=== PATIENT | male | born 1945 | race Caucasian/White ===

== ENCOUNTER 2022-02-19 20:20 | Observation (INO) ==
[2022-02-19 21:04] LABS: Basophils # (auto) 0.04 K/uL (0-0.2); Basophils % (auto) 0.4 %; Eosinophils # (auto) 0.37 K/uL (0-0.50); Eosinophils % (auto) 3.6 %; Hemoglobin 13.6 g/dl (14.0-18.0); Immature Granulocytes # (auto) 0.06 K/uL (0.00-0.02); Immature Granulocytes % (auto) 0.6 %; Lymphocytes # (auto) 0.95 K/uL (1.2-3.4); Lymphocytes % (auto) 9.3 %; Mean Corpuscular Hemoglobin 26.5 pg (25.0-34.0); Mean Corpuscular Hgb Conc 31.6 g/dL (32.0-36.0); Mean Corpuscular Volume 83.7 fL (80.0-100.0); Mean Platelet Volume 10.2 fL (9.4-12.4); Monocytes # (auto) 0.65 K/uL (0.24-0.82); Monocytes % (auto) 6.4 %; Neutrophils # (auto) 8.11 K/uL (1.4-6.5); Neutrophils % (auto) 79.7 %; Platelet Count 313 K/uL (130-400); RDW Coefficient of Variation 19.7 % (11.5-14.5); RDW Standard Deviation 57.9 fL (36.4-46.3); Red Blood Count 5.14 M/uL (4.63-6.08); White Blood Count 10.18 K/ul (4.8-10.8)
--- NOTE | 2022-02-19 23:35 | Emergency Department Note ---
History of Present Illness General Chief complaint: Syncope (Near Syncope) Time Seen by Provider: 02/19/22 23:17 History of Present Illness 76-year-old male presents emergency department states that he was outside he bent over he was wearing oxygen at 6 L and he states that he felt like he was out of oxygen. His called EMS due to the fact that he ended up laying down and may have had a brief episode of syncope. Patient denies any chest pain denies shortness of breath currently typically states he wears 8 L of oxygen he states he feels much improved currently he states he may of ran out of oxygen. Patient denies any substernal chest pressure denies headache denies nausea vomiting diarrhea denies abdominal pain. There are no other mitigating or alleviating factors Home Medications Medication Instructions Recorded Confirmed Type ASPIRIN 325 mg PO DAILY ##0 06/14/13 History ATORVASTATIN (LIPITOR) 40 mg PO QPM #0 tabs 06/14/13 History Allopurinol 300 mg PO DAILY ##0 06/14/13 History Amlodipine (Norvasc) 10 mg PO DAILY #0 tabs 06/14/13 History FUROSEMIDE (LASIX) 20 mg PO DAILY #0 tabs 06/14/13 History Lisinopril (Zestril) 10 mg PO DAILY #0 tabs 06/14/13 History OMEPRAZOLE (PRILOSEC) 20 mg PO DAILY #0 caps 06/14/13 History Metoprolol Succ (Toprol Xl) 1 tab PO DAILY 30 days #30 tabs 02/03/16 History (Toprol-Xl) WARFARIN SODIUM (COUMADIN) 1 tab PO DAILY 90 days #90 tabs 02/03/16 History Allergies Allergy/AdvReac Type Severity Reaction Status Date / Time No Known Allergies Allergy Unverified 02/03/16 08:59 Past Med/Surg History Social History Smoking Status: Former smoker Tobacco Type: Cigarettes Feels Safe at Home: Yes Immunizations: Past medical history COPD, hypertension, high cholesterol Physical Exam Vital Signs Vital Signs - 24 hr 02/19/22 20:33 02/19/22 23:27 02/19/22 23:29 Temperature 36.7 C Temperature Source Temporal Artery Scan Pulse Rate 84 82 Pulse Rate [Finger] 82 Respiratory Rate 18 18 18 Respiratory Effort / Characteristics Non-Labored Spontaneous Non-Labored Spontaneous Respiratory Depth Normal Normal Blood Pressure 105/66 Blood Pressure [Right Arm] 143/78 H Blood Pressure Mean 79 Blood Pressure Mean [Right Arm] 99 Blood Pressure Position [Right Arm] Sitting Pulse Oximetry 91 90 90 Oxygen Delivery Method Room Air Nasal Cannula Nasal Cannula Oxygen Flow Rate 8 8 Sepsis Recent Fever Within 48 Hours No Sepsis New/Unexplained Change in Mental Status No Sepsis Action Taken by Nursing No Action Required GENERAL: Patient is awake alert in no acute distress patient is resting comfortably and showing no signs of anxiety EYES: The conjunctivae are clear. The pupils are round and reactive. EARS, NOSE, MOUTH AND THROAT: The nose is without any evidence of any deformity. Mucous membranes are moist. Tongue is midline. NECK: The neck is nontender and supple. RESPIRATORY: Normal respiratory effort is noted there is no evidence of wheezing rhonchi or rales CARDIOVASCULAR: Regular rate and rhythm noted there no murmurs rubs or gallops normal S1 normal S2. GASTROINTESTINAL: The abdomen is soft. Abdomen is nontender. PELVIS: The Pelvis is stable. No tenderness to palpation is noted. BACK: No midline tenderness or or step-off noted range of motion in flexion extension as well as rotation no signs of muscle spasm noted MUSCULOSKELETAL/EXTREMITIES: There is no evidence of gross deformity full range of motion is noted in the hips and shoulders. SKIN: There is no obvious evidence of any rash. There are no petechiae, pallor or cyanosis noted. NEUROLOGIC: Patient is awake alert and oriented x3 strength is symmetric Medical Decision Making Medical Records Attestation: I reviewed the patient's medical records. Home Medications Current Medication List: was personally reviewed by me Laboratory Data Attestation: I reviewed the patient's lab results. Result diagrams: 02/19/22 20:53 02/19/22 23:24 Lab Results 02/19/22 02/19/22 02/19/22 Range/Units 20:53 20:53 20:53 WBC 10.18 (4.8-10.8) K/ul RBC 5.14 (4.63-6.08) M/uL Hgb 13.6 L (14.0-18.0) g/dl Hct 43.0 (40.1-51.0) % MCV 83.7 (80.0-100.0) fL MCH 26.5 (25.0-34.0) pg MCHC 31.6 L (32.0-36.0) g/dL RDW Std Deviation 57.9 H (36.4-46.3) fL RDW Coeff of Mar[place]ruz 19.7 H (11.5-14.5) % Plt Count 313 (130-400) K/uL MPV 10.2 (9.4-12.4) fL Immature Gran % (Auto) 0.6 % Neut % (Auto) 79.7 % Lymph % (Auto) 9.3 % [place] % (Auto) 6.4 % Eos % (Auto) 3.6 % Baso % (Auto) 0.4 % Neut # (Auto) 8.11 H (1.4-6.5) K/uL Lymph # (Auto) 0.95 L (1.2-3.4) K/uL [place] # (Auto) 0.65 (0.24-0.82) K/uL Eos # (Auto) 0.37 (0-0.50) K/uL Baso # (Auto) 0.04 (0-0.2) K/uL Immature Gran # (Auto) 0.06 H (0.00-0.02) K/uL PT (9.0-12.0) Seconds INR (0.9-1.1) Sodium Cancelled Potassium Cancelled Chloride Cancelled Carbon Dioxide Cancelled Anion Gap Cancelled BUN Cancelled Creatinine Cancelled Est Cr Clr Drug Dosing Cancelled Est GFR ( Amer) Cancelled Est GFR (Non-Af Amer) Cancelled BUN/Creatinine Ratio Cancelled Glucose Cancelled Calcium Cancelled Magnesium Cancelled Total Bilirubin Cancelled AST Cancelled ALT Cancelled Alkaline Phosphatase Cancelled Troponin I High Sens (0-20) pg/ml Total Protein Cancelled Albumin Cancelled Globulin Cancelled Albumin/Globulin Ratio Cancelled TSH Cancelled 02/19/22 02/19/22 02/19/22 Range/Units 23:24 23:24 23:24 WBC (4.8-10.8) K/ul RBC (4.63-6.08) M/uL Hgb (14.0-18.0) g/dl Hct (40.1-51.0) % MCV (80.0-100.0) fL MCH (25.0-34.0) pg MCHC (32.0-36.0) g/dL RDW Std Deviation (36.4-46.3) fL RDW Coeff of [place] (11.5-14.5) % Plt Count (130-400) K/uL MPV (9.4-12.4) fL Immature Gran % (Auto) % Neut % (Auto) % Lymph % (Auto) % [place] % (Auto) % Eos % (Auto) % Baso % (Auto) % Neut # (Auto) (1.4-6.5) K/uL Lymph # (Auto) (1.2-3.4) K/uL [place] # (Auto) (0.24-0.82) K/uL Eos # (Auto) (0-0.50) K/uL Baso # (Auto) (0-0.2) K/uL Immature Gran # (Auto) (0.00-0.02) K/uL PT (9.0-12.0) Seconds INR (0.9-1.1) Sodium 137 Potassium 4.2 Chloride 102 Carbon Dioxide 25 Anion Gap 10 BUN 31 H Creatinine 1.56 H Est Cr Clr Drug Dosing Not Reportable Est GFR ( Amer) 49.3 Est GFR (Non-Af Amer) 42.5 BUN/Creatinine Ratio 19.9 Glucose 103 H Calcium 9.2 Magnesium 2.1 Total Bilirubin 0.7 AST 20 ALT 12 Alkaline Phosphatase 71 Troponin I High Sens 1414.5 H* (0-20) pg/ml Total Protein 8.3 Albumin 4.3 Globulin 4.0 Albumin/Globulin Ratio 1.1 TSH 2.345 02/19/22 Range/Units 23:24 WBC (4.8-10.8) K/ul RBC (4.63-6.08) M/uL Hgb (14.0-18.0) g/dl Hct (40.1-51.0) % MCV (80.0-100.0) fL MCH (25.0-34.0) pg MCHC (32.0-36.0) g/dL RDW Std Deviation (36.4-46.3) fL RDW Coeff of [place] (11.5-14.5) % Plt Count (130-400) K/uL MPV (9.4-12.4) fL Immature Gran % (Auto) % Neut % (Auto) % Lymph % (Auto) % [place] % (Auto) % Eos % (Auto) % Baso % (Auto) % Neut # (Auto) (1.4-6.5) K/uL Lymph # (Auto) (1.2-3.4) K/uL [place] # (Auto) (0.24-0.82) K/uL Eos # (Auto) (0-0.50) K/uL Baso # (Auto) (0-0.2) K/uL Immature Gran # (Auto) (0.00-0.02) K/uL PT 11.9 (9.0-12.0) Seconds INR 1.1 (0.9-1.1) Sodium Potassium Chloride Carbon Dioxide Anion Gap BUN Creatinine Est Cr Clr Drug Dosing Est GFR ( Amer) Est GFR (Non-Af Amer) BUN/Creatinine Ratio Glucose Calcium Magnesium Total Bilirubin AST ALT Alkaline Phosphatase Troponin I High Sens (0-20) pg/ml Total Protein Albumin Globulin Albumin/Globulin Ratio TSH Imaging Data Attestation: I personally reviewed and interpreted this imaging study as follows: ECG Data Attestation: I personally reviewed and interpreted this ECG as follows: Additional Comments: EKG interpreted by me sinus rhythm rate of 88 left axis deviation left ventricular hypertrophy right bundle branch block no obvious ST segment elevation or depression MDM Narrative Medical decision making differential diagnosis includes syncope near syncope vasovagal event cardiac dysrhythmia electrolyte abnormality CHF COPD exacerbation. Plan is to check labs EKG, chest x-ray, monitor Impression & Plan Syncope, Elevated troponin Discharge Plan Visit Data Chief Complaint: Syncope (Near Syncope) ED Provider: Hector Mccormick Discharge Problem: Syncope, Elevated troponin Patient Disposition: Being Evaluated by Hospitalist Forms Stand Alone Forms: [facility] Prescriptions Prescriptions: No Action ASPIRIN 325 MG tablet 325 mg PO DAILY Qty: 0 ATORVASTATIN (LIPITOR) 80 MG tablet 40 mg PO QPM Qty: 0 Allopurinol 300 MG tablet 300 mg PO DAILY Qty: 0 Amlodipine (Norvasc) 10 MG tablet 10 mg PO DAILY Qty: 0 FUROSEMIDE (LASIX) 20 MG tablet 20 mg PO DAILY Qty: 0 Lisinopril (Zestril) 10 MG tablet 10 mg PO DAILY Qty: 0 OMEPRAZOLE (PRILOSEC) 20 MG CONTR REL CAP 20 mg PO DAILY Qty: 0 Metoprolol Succ (Toprol Xl) (Toprol-Xl) 50 MG [id number] 1 tab PO DAILY 30 Days Qty: 30 WARFARIN SODIUM (COUMADIN) 5 MG tablet 1 tab PO DAILY 90 Days Qty: 90 Referrals Referrals: Ulises Martínez M.D. [Primary Care Provider] -
[2022-02-19 23:49] LABS: INR 1.1 (0.9-1.1); Prothrombin Time 11.9 Seconds (9.0-12.0)
[2022-02-19 23:57] LABS: Alanine Aminotransferase 12 U/L (7-52); Albumin Globulin Ratio 1.1 (0.9-2); Albumin Level 4.3 gm/dl (3.4-5.0); Alkaline Phosphatase 71 U/L (34-104); Anion Gap 10 (3-11); Aspartate Aminotransferase 20 U/L (13-39); BUN Creatinine Ratio 19.9 (10-20); Bilirubin,Total 0.7 mg/dl (0.2-1.0); Blood Urea Nitrogen 31 mg/dl (6-23); Calcium 9.2 mg/dl (8.5-10.1); Carbon Dioxide 25 mmol/L (21-32); Chloride 102 mmol/L (98-107); Est GFR (African American) 49.3 ml/min; Est GFR (Non-African American) 42.5 ml/min; Glucose 103 mg/dl (70-99(Fasting)); Magnesium 2.1 mg/dl (1.7-2.4); Potassium 4.2 mmol/L (3.5-5.1); Sodium 137 mmol/L (136-145); Total Protein 8.3 gm/dl (6.0-8.3)
[2022-02-20] MEDS ORDERED: ACETAMINOPHEN 325 MG TAB PO PRN (04:31)
[2022-02-20] MEDS ORDERED: NITROGLYCERIN SL 0.4 MG/TAB TAB SL PRN (04:31)
[2022-02-20] MEDS ORDERED: ALBUTEROL 0.083% NEBU SOLN 3 ML VIAL INH PRN (04:31)
[2022-02-20] MEDS ORDERED: FUROSEMIDE 20 MG TAB PO PRN (04:31)
[2022-02-20] MEDS ORDERED: DICLOFENAC SOD 1% GEL 100 GM TUBE EXT PRN (04:31)
[2022-02-20] MEDS ORDERED: ALBUTEROL HFA 8 GM INHALER INH PRN (04:31)
--- NOTE | 2022-02-20 04:55 | History and Physical Report ---
DATE OF ADMISSION: 02/20/2022. CHIEF COMPLAINT: Near syncope. HISTORY OF PRESENT ILLNESS: This is a 76-year-old male with past medical history significant for history of chronic systolic and diastolic CHF, pulmonary hypertension, COPD, chronic respiratory failure with hypoxia, on 6 liters of oxygen while at rest and 8 liters while exertion, history of hyperlipidemia, lung nodules, history of CAD, status post CABG, history of second-degree AV block, status post pacemaker, history of peripheral artery disease, hypertension, history of mediastinal adenopathy. He presents with near syncope. The patient was in the front of his house,he was decorating his [employer] tree, when he was bending down, he bent 3 times, and the last time when he bent and got up, he felt like passing out, and he had to go and sit down and the feeling of passing out lasted for 2 minutes, which prompted him to come to the ER. Denies any chest pain, no shortness of breath, no cough, no fever, no chills, no headache, no dizziness, no blurred visions, no earache, no runny nose, no sore throat, no difficulty swallowing, no nausea, no abdominal pain. Normal bowel and bladder movements. No swelling in the legs. Currently, resting comfortably and hemodynamically stable. His troponin is elevated at 1414. ALLERGIES: No known drug allergies. PAST MEDICAL HISTORY: As mentioned above. PAST SURGICAL HISTORY: CABG, left heart catheterization, pacemaker insertion, tonsillectomy, adenoidectomy, inguinal hernia repair, vasectomy. MEDICATIONS: The patient is on albuterol nebulization q. 4 hours p.r.n., albuterol inhalation q. 4 hours p.r.n., allopurinol 300 mg p.o. daily, aspirin 81 mg p.o. daily, atorvastatin 80 mg p.o. daily, vitamin D 50 mcg p.o. daily, diclofenac topical q. 4 hours p.r.n., Lasix 40 mg p.o. b.i.d. and 20 mg p.o. daily p.r.n., gabapentin 300 mg p.o. t.i.d., hydralazine 10 mg p.o. t.i.d., magnesium oxide 400 mg p.o. daily, metoprolol succinate 50 mg p.o. daily, omeprazole 20 mg p.o. daily, Anoro Ellipta one inhalation daily. FAMILY HISTORY: Significant for mother had colon cancer, brother has complication of Agent [place]. SOCIAL HISTORY: . Quit smoking in 2002, smoked 2 packs a day for 40 years. No alcohol use. No drug use. REVIEW OF SYSTEMS: As per HPI. Rest of the review of systems is negative. PHYSICAL EXAMINATION: GENERAL: The patient is of moderate build, not in acute distress. VITAL SIGNS: Temperature 36.7, pulse 82, respiratory rate 18, blood pressure 143/78, oxygen 90% on 8 liters. HEENT: No pallor, no icterus. Pupils equal, round, and reactive to light. Oral mucosa moist. NECK: No JVD or neck masses. CARDIOVASCULAR: S1 and S2 heard. Regular rate and rhythm. No murmur, no gallop. RESPIRATORY SYSTEM: Normal AP diameter. No accessory muscle use. No wheezing, no crackles. ABDOMEN: Soft, bowel sounds present, nontender, no distention. CENTRAL NERVOUS SYSTEM: Cranial nerves II-XII grossly intact, nonfocal. EXTREMITIES: No edema, no erythema. LABORATORY DATA: WBC 10.1, hemoglobin 13.6, hematocrit 43, platelets 313. PT 11.9, INR 1.1. Sodium 137, potassium 4.2, chloride 102, bicarbonate 25, BUN 31, creatinine 1.5, serum glucose 103, calcium 9.2, magnesium 2.1, total bilirubin 0.7, AST 20, ALT 12, alkaline phosphatase 71. Troponin I high sensitivity 1414. TSH is 2.3. SARS-CoV-2 rapid test negative. IMAGING DATA: Chest x-ray, no acute findings. EKG: Sinus rhythm with first-degree AV block, poor quality data, left axis deviation, right bundle-branch block. ASSESSMENT AND PLAN: This 76-year-old male presents with near syncope. 1. Near syncope: Elevated troponin of 1414. No chest pain. Currently resting comfortably and hemodynamically stable. Will follow the serial cardiac enzymes, repeat EKG, and will follow echocardiogram. Will keep him n.p.o. If troponin trends high, will start on heparin. Will consult cardiology in the a.m. for further recommendations. 2. History of chronic systolic and diastolic CHF, EF of 40% to 45%. Continue his home Lasix and metoprolol succinate. Currently seems stable. 3. History of chronic respiratory failure: On oxygen 6 liters at rest and 8 L with exertion. History of COPD. History of pulmonary hypertension. Continue his home inhalers. Currently seems stable. 4. History of second-degree AV block: Status post pacemaker. 5. History of coronary artery disease, status post coronary artery bypass grafting. Continue his home medications of aspirin, statin, and beta elmer. 6. Hypertension: On metoprolol, hydralazine, diuretics. We will monitor the blood pressure. 7. Hyperlipidemia: On statin. 8. CKD stage 3 presented with cr 1.5. Baseline cr 1.3 to 1.4. Will follow repeat labs. 9. Deep venous thrombosis prophylaxis: Sequential compression devices, heparin subcutaneously. DISPOSITION: Closely observe in the tele floor. PT/OT prior to discharge. Social service to help with discharge planning. Level 1 full code. Job ID: [id number] MTDD
[2022-02-20 08:08] LABS: Appearance Urine Clear (Clear); Bilirubin Urine Negative (Negative); Blood Urine Negative (Negative); Color Urine Yellow; Glucose Urine UA Negative (Negative); Ketones Urine Negative (Negative); Leukocyte Esterase Urine Negative (Negative); Nitrite Urine Negative (Negative); Protein Urine Negative (Negative); Specific Gravity Urine 1.018 (1.000-1.030); Urobilinogen Urine Negative (Negative)
[2022-02-20 08:32] LABS: Basophils # (auto) 0.04 K/uL (0-0.2); Basophils % (auto) 0.5 %; Eosinophils # (auto) 0.38 K/uL (0-0.50); Eosinophils % (auto) 4.5 %; Hematocrit (blood only) 40.5 % (40.1-51.0); Hemoglobin 13.2 g/dl (14.0-18.0); Immature Granulocytes # (auto) 0.02 K/uL (0.00-0.02); Immature Granulocytes % (auto) 0.2 %; Lymphocytes % (auto) 16.6 %; Mean Corpuscular Hemoglobin 26.5 pg (25.0-34.0); Mean Corpuscular Hgb Conc 32.6 g/dL (32.0-36.0); Mean Corpuscular Volume 81.3 fL (80.0-100.0); Mean Platelet Volume 10.2 fL (9.4-12.4); Monocytes # (auto) 0.71 K/uL (0.24-0.82); Monocytes % (auto) 8.4 %; Neutrophils # (auto) 5.87 K/uL (1.4-6.5); Neutrophils % (auto) 69.8 %; Platelet Count 275 K/uL (130-400); RDW Coefficient of Variation 19.4 % (11.5-14.5); RDW Standard Deviation 56.2 fL (36.4-46.3); Red Blood Count 4.98 M/uL (4.63-6.08); White Blood Count 8.42 K/ul (4.8-10.8)
--- NOTE | 2022-02-20 08:45 | XRay Report ---
XR chest 1V portable CLINICAL HISTORY: cough COMPARISON STUDY: Chest radiograph December 10, 2013. FINDINGS: Dual-lead left subclavian pacer, median sternotomy wires, mediastinal surgical clips and le ft atrial appendage occluder device are noted. There is no pneumothorax or pleural effusion. Linear l eft basilar opacity favors atelectasis or scarring. Cardiomegaly is noted. There is no evidence for o vert pulmonary edema. IMPRESSION: No acute cardiopulmonary findings. ACT 112: Negative or not required by law. Electronically signed by: Terrell Hale M.D. 02/20/2022 8:44 AM
[2022-02-20 08:56] LABS: BUN Creatinine Ratio 21.8 (10-20); Calcium 8.8 mg/dl (8.5-10.1); Creatinine Clr Calc Pharmacy 53.4 ml/min; Est GFR (African American) 59.8 ml/min; Est GFR (Non-African American) 51.6 ml/min; Magnesium 2.1 mg/dl (1.7-2.4); Potassium 3.9 mmol/L (3.5-5.1)
[2022-02-20] MEDS ORDERED: METOPROLOL SUCC 50MG EXT REL TAB PO SCH (09:00)
[2022-02-20] MEDS ORDERED: ASPIRIN 81 MG ECTAB PO SCH (09:00)
[2022-02-20] MEDS ORDERED: allopurinoL 300 MG TAB PO SCH (09:00)
[2022-02-20] MEDS ORDERED: ATORVASTATIN 40 MG TAB PO SCH (09:00)
[2022-02-20] MEDS ORDERED: HEPARIN SOD 5,000 UNIT/0.5 ML VIAL SQ SCH (09:00)
[2022-02-20] MEDS ORDERED: UMECLIDINIUM/VILANTEROL 62.5/25MCG 7 PUFFS/INHALER INH SCH (09:00)
[2022-02-20] MEDS ORDERED: MAGNESIUM OXIDE 400 MG TAB PO SCH (09:00)
[2022-02-20] MEDS ORDERED: FUROSEMIDE 40 MG TAB PO SCH (09:00)
[2022-02-20] MEDS ORDERED: PANTOprazole 40 MG TAB PO SCH (09:00)
[2022-02-20] MEDS ORDERED: CHOLECALCIFEROL 1,000 UNITS 25 MCG TAB PO SCH (09:00)
[2022-02-20 09:06] LABS: Troponin I High Sensitivity 1387.3 pg/ml (0-20)
[2022-02-20] MEDS: hydrALAZINE 10 MG TAB PO SCH ×2 (09:29→13:58)
[2022-02-20] MEDS: GABAPENTIN 300 MG CAP PO SCH ×2 (09:29→13:58)
--- NOTE | 2022-02-20 11:15 | Cardiology Consultation ---
Date of Consultation February 20, 2022 Assessment & Plan (1) Syncope: (2) Elevated troponin: (3) SSS (sick sinus syndrome): (4) CAD (coronary artery disease): (5) Chronic hypoxemic respiratory failure: (6) Ischemic cardiomyopathy: (7) Pulmonary hypertension: (8) COPD (chronic obstructive pulmonary disease): Plan We are able to review the patient's device interrogation which showed no arrhythmias at the time of his near syncopal event Given the clinical context I believe he likely hyperventilated which led to his near syncope Troponin is elevated but 2D echocardiogram does not show any new wall motion abnormalities No indication for repeat cardiac catheterization at this time Continue outpatient cardiac medical regimen Okay to discharge to home from a cardiac standpoint History of Present Illness Attending Physician: Ben Avila MD History of Present Illness Mr. Barreto is a very pleasant 76-year-old gentleman who normally follows with Dr. Montez of our cardiology practice for his history of coronary disease and mild ischemic cardiomyopathy. He presented to [facility] on 02/19/2022 with reports of a near syncopal episode. He states that he was putting up outside holiday decorations when he bent down to 3 times and upon arising the third time he became significantly lightheaded and had to sit down. Upon further questioning, he notes that he forgot to turn his oxygen up to 8 L as he is directed for activity. Upon arrival emergency department is found to have elevated troponin level. His device was interrogated that showed no arrhythmias to coincide with the event. PMHX: History includes progressive dyspnea, leading to cardiac cath revealing multivessel disease. He was transferred to [facility] and underwent CABG on 04/11/20 receiving CABG X 4 with SHERWOOD to LAD, SVG to DIAG, OM, and PDA. Post op course was complicated by persistent hypoxia, requiring high flow oxygen and BiPAP, which was slowly weaned to NC. He underwent chest CT to R/O PE which was negative and demonstrated small B/L pleural effusions. Post op echo revealed mildly reduced LVEF at 45-49%. He required supplemental O2 upon discharge and now has chronic respiratory failure with COPD/emphysema. He is following with pulm closely. Allergies Allergy/AdvReac Type Severity Reaction Status Date / Time No Known Allergies Allergy Unverified 02/20/22 01:10 Home Medications Medication Instructions Recorded Confirmed Type albuterol sulfate 2.5 mg/3 mL 2.5 mg inhalation Q4H PRN 02/20/22 02/20/22 History (0.083 %) solution for nebulization Shortness Of Breath Or Wheezing albuterol sulfate 90 mcg/actuation 2 puff inhalation Q4 PRN Shortness 02/20/22 02/20/22 History aerosol inhaler (Ventolin HFA) Of Breath allopurinol 300 mg tablet 300 mg PO DAILY 02/20/22 02/20/22 History aspirin 81 mg tablet,delayed 81 mg PO DAILY 02/20/22 02/20/22 History release atorvastatin 80 mg tablet 80 mg PO DAILY 02/20/22 02/20/22 History cholecalciferol (vitamin D3) 50 50 mcg PO DAILY 02/20/22 02/20/22 History mcg (2,000 unit) tablet (Vitamin D3) diclofenac sodium 1 % topical gel 0 g topical Q4 PRN Pain 02/20/22 02/20/22 History (Voltaren Arthritis Pain) furosemide 20 mg tablet (Lasix) 20 mg PO DAILY PRN .SOB 02/20/22 02/20/22 History furosemide 40 mg tablet (Lasix) 40 mg PO BID 02/20/22 02/20/22 History gabapentin 300 mg capsule 300 mg PO TID 02/20/22 02/20/22 History hydralazine 10 mg tablet 10 mg PO TID 02/20/22 02/20/22 History magnesium oxide 400 mg PO DAILY 02/20/22 02/20/22 History metoprolol succinate 50 mg 50 mg PO DAILY 02/20/22 02/20/22 History tablet,extended release 24 hr omeprazole 20 mg capsule,delayed 20 mg PO DAILY 02/20/22 02/20/22 History release umeclidinium 62.5 mcg-vilanterol 1 inh inhalation DAILY 02/20/22 02/20/22 History 25 mcg/actuation powdr for inhalation (Anoro Ellipta) Patient History Social History Smoking Status: Former smoker Tobacco Type: Cigarettes Second Hand Exposure: No; Do You Dip or Chew Tobacco: No; Tobacco Cessation Education Requested by Patient: No Hx Alcohol Use: Yes Alcohol type: beer Hx Substance Use: No Preferred Language: Mexican Communication Ability: Effective Grill Associate Required: No Beliefs That Will Affect Care: None Current Living Situation: Spouse Current Living Situation Comment: Home with Other Information That Helps Us Care for You: No Feels Safe at Home: Yes Safety Concerns: Feels Safe At This Time Assistive Devices: Oxygen - Continuous Assistive Devices Comment: 6-8L chronic Review of Systems Review of Systems: All systems reviewed & are unremarkable except as noted in HPI & below Physical Exam Physical Exam: General: Awake, alert and oriented x 3. No acute distress. HEENT: Normocephalic, atraumatic. Pupils equal, round and reactive to light and accommodation. Extraocular muscles are intact. Anicteric sclera. Moist mucous membranes. Neck: No JVD. No bruit. Cardiovascular: Regular. Positive S-4. Normal S-1 and S-2. No S-3. 3/6 holosystolic ejection murmur, 5th intercostal space, mid-clavicular line without radiation. No rubs. Pulmonary: Poor air movement diffusely Abdomen: Bowel sounds x 4, soft. No rebound, guarding or tenderness. No organomegaly. Extremities: No clubbing, cyanosis or edema. +2 pedal pulses bilaterally. Skin: Warm and dry. Results & Data ([facility]) Vital Signs (Past 12 Hours) Vital Signs Temp Pulse Pulse Resp BP Pulse Ox Pulse Ox 02/20/22 07:48 36.6 C 62 22 138/73 90 02/20/22 05:00 60 02/20/22 05:18 02/20/22 05:18 36.5 C 61 20 150/79 H 93 02/20/22 04:31 93 02/20/22 03:10 66 18 145/79 H 93 02/20/22 01:13 60 18 140/81 94 02/19/22 23:29 82 18 90 02/19/22 23:27 82 18 143/78 H 90 O2 Del Method O2 Del Method O2 Flow Rate O2 Flow Rate 02/20/22 07:48 Nasal Cannula 7 02/20/22 05:00 02/20/22 05:18 High Flow Nasal Cannula 8 02/20/22 05:18 High Flow Nasal Cannula 8 02/20/22 04:31 High Flow Nasal Cannula 8 02/20/22 03:10 Nasal Cannula 8 02/20/22 01:13 Nasal Cannula 8 02/19/22 23:29 Nasal Cannula 8 02/19/22 23:27 Nasal Cannula 8 Diagnostic Findings Echo report reviewed dated September 2021: Interpretation Summary The primary indication after review was deemed appropriate and the examination was performed. Compared to last available study changes are noted as follows: pulmonary pressures have increased. Normal LV chamber size with mild concentric LVH. Mildly reduced LV systolic function. Calculated LV ejection Fraction = 45% (bi-plane method of discs). Akinesis and thinning of the inferior wall along with abnormal septal wall motion consistent with RV pacing, otherwise, normal wall motion. Grade I diastolic dysfunction. Moderately dilated RV chamber size with reduced systolic function by TAPSE. Moderate tricuspid regurgitation. The aortic root is mildly enlarged. The proximal ascending thoracic aorta is normal sized. Pulmonary hypertension is present. The estimated pulmonary artery systolic pressure is 68 mm Hg.
--- NOTE | 2022-02-20 14:01 | Discharge Summary ---
Date of Service February 20, 2022 Admission HPI Per Admitting Provider This is a 76-year-old male with past medical history significant for history of chronic systolic and diastolic CHF, pulmonary hypertension, COPD, chronic respiratory failure with hypoxia, on 6 liters of oxygen while at rest and 8 liters while exertion, history of hyperlipidemia, lung nodules, history of CAD, status post CABG, history of second-degree AV block, status post pacemaker, history of peripheral artery disease, hypertension, history of mediastinal adenopathy. He presents with near syncope. The patient was in the front of his house,he was decorating his [employer] tree, when he was bending down, he bent 3 times, and the last time when he bent and got up, he felt like passing out, and he had to go and sit down and the feeling of passing out lasted for 2 minutes, which prompted him to come to the ER. Denies any chest pain, no shortness of breath, no cough, no fever, no chills, no headache, no dizziness, no blurred visions, no earache, no runny nose, no sore throat, no difficulty swallowing, no nausea, no abdominal pain. Normal bowel and bladder movements. No swelling in the legs. Currently, resting comfortably and hemodynamically stable. His troponin is elevated at 1414. Admission Exam Per Admitting Provider GENERAL: The patient is of moderate build, not in acute distress. VITAL SIGNS: Temperature 36.7, pulse 82, respiratory rate 18, blood pressure 143/78, oxygen 90% on 8 liters. HEENT: No pallor, no icterus. Pupils equal, round, and reactive to light. Oral mucosa moist. NECK: No JVD or neck masses. CARDIOVASCULAR: S1 and S2 heard. Regular rate and rhythm. No murmur, no gallop. RESPIRATORY SYSTEM: Normal AP diameter. No accessory muscle use. No wheezing, no crackles. ABDOMEN: Soft, bowel sounds present, nontender, no distention. CENTRAL NERVOUS SYSTEM: Cranial nerves II-XII grossly intact, nonfocal. EXTREMITIES: No edema, no erythema. Principal Diagnosis near syncope Discharge Exam GENERAL: The patient is of moderate build, not in acute distress. HEENT: No pallor, no icterus. Pupils equal, round, and reactive to light. Oral mucosa moist. NECK: No JVD or neck masses. CARDIOVASCULAR: S1 and S2 heard. Regular rate and rhythm. No murmur, no gallop. RESPIRATORY SYSTEM: Normal AP diameter. No accessory muscle use. No wheezing, no crackles. ABDOMEN: Soft, bowel sounds present, nontender, no distention. CENTRAL NERVOUS SYSTEM: Cranial nerves II-XII grossly intact, nonfocal. EXTREMITIES: No edema, no erythema. Discharge Data Allergies Allergy/AdvReac Type Severity Reaction Status Date / Time No Known Allergies Allergy Unverified 02/20/22 01:10 Consultations 02/20/22 00:51 ED Decision to Admit Stat 02/20/22 08:00 Consult Cardiology Routine Hospital Course (1) Elevated troponin: - presented with near syncope after bending over a couple times - elevated troponin to 1400 on admission, ECG unremarkable for ischemic changes - repeat troponin trend down - TTE unremarkable for RWMA - Cardiology recommends continue home meds and follow up outpatient Cardiology - patient chest pain free prior to admission and during admission (2) CAD (coronary artery disease): - continue home meds - no indication for LHC per cardiology (3) Chronic hypoxemic respiratory failure: - continue home O2, no change in requirements (4) COPD (chronic obstructive pulmonary disease): - continue home O2 - continue inhalers - not ine exacerbation Plan Discharge home with follow up. No med changes. Total Time Total Time Spent Total Time Spent (In Minutes): 35 Total Time Includes: Examination of the Patient, Discharge Planning, Medication Reconciliation and Communication With Other Providers Discharge Plan Discharge Items Patient Disposition: Home - Self-Care Reason For Visit: NEAR SYNCOPE Discharge Diagnosis: near syncope Activity: Resume your previous activity Non-emergency contact: Primary Care Provider and Cribber Call non-emergency contact if: you have any medication questions and your symptoms worsen Follow-up/Referrals: Ulises Martínez M.D. [Primary Care Provider] - Diet: Heart Healthy Addtl Attending Provider Instructions: You were admitted with near syncope (passing out) and had elevated heart markers in the blood but with an ok EKG. You had a repeat echocardiogram that was unchanged. You were seen by Cardiology and cleared for discharge. 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 Pending Studies at Discharge: No Stand-Alone Forms: [employer], Smoking Cessation Medications and DC Order Prescriptions: Continued furosemide [Lasix] 40 mg Tablet 40 mg PO BID Rx Instructions: take in am & afternoon hydralazine 10 mg Tablet 10 mg PO TID atorvastatin 80 mg Tablet 80 mg PO DAILY albuterol sulfate 2.5 mg /3 mL (0.083 %) Solution For Nebulization 2.5 mg INHALATION Q4H PRN (Reason: Shortness Of Breath Or Wheezing) metoprolol succinate 50 mg Tablet Extended Release 24 Hr 50 mg PO DAILY aspirin [Aspir-Low] 81 mg Tablet,Delayed Release (Dr/Ec) 81 mg PO DAILY gabapentin 300 mg Capsule 300 mg PO TID omeprazole 20 mg Capsule,Delayed Release(Dr/Ec) 20 mg PO DAILY allopurinol 300 mg Tablet 300 mg PO DAILY furosemide [Lasix] 20 mg Tablet 20 mg PO DAILY PRN (Reason: .SOB) albuterol sulfate [Ventolin HFA] 90 mcg/actuation Hfa Aerosol Inhaler 2 puff INHALATION Q4 PRN (Reason: Shortness Of Breath) diclofenac sodium [Voltaren Arthritis Pain] 1 % Gel 0 g TOPICAL Q4 PRN (Reason: Pain) Rx Instructions: right knee cholecalciferol (vitamin D3) [Vitamin D3] 50 mcg (2,000 unit) Tablet 50 mcg PO DAILY Anoro Ellipta 62.5-25 mcg/actuation Blister With Device 1 inh INHALATION DAILY magnesium oxide 400 mg magnesium Tablet 400 mg PO DAILY Discharge Orders: Discharge Order (Routine); Ordered 02/20/22 Ordered By: Ben Avila Admission Data Admit Date/Time: 02/20/22 01:37 Attending Provider: Ben Avila Admit Provider: Vidal Harper Primary Care Provider: Ulises Martínez Other Providers: Vidal Harper ; Hector Luna ; Murphy Rosas ; Eber Bergman ; Vipul Casas ; Michael Schwab ; Shin Cedeño ; Delphine Covarrubias ; Mercy Carney ; Mareitta Ludwig ; Scotty Herrera
--- NOTE | 2022-02-22 05:37 | Electrocardiogram Report ---
Test Reason : Blood Pressure : / mmHG Vent. Rate : 088 BPM Atrial Rate : 088 BPM P-R Int : 276 ms QRS Dur : 144 ms QT Int : 404 ms P-R-T Axes : 000 -62 084 degrees QTc Int : 488 ms Poor data quality, interpretation may be adversely affected Sinus rhythm with 1st degree A-V block Left axis deviation Right bundle branch block Left ventricular hypertrophy with repolarization abnormality Inferior infarct , age undetermined Abnormal ECG No previous ECGs available Confirmed by Geoffrey Chavez ([id number]) on 02/22/2022 5:36:56 AM Referred By: REFERRED SELF Confirmed By:Geoffrey Chavez
--- NOTE | 2022-02-22 05:43 | Electrocardiogram Report ---
Test Reason : Blood Pressure : / mmHG Vent. Rate : 060 BPM Atrial Rate : 060 BPM P-R Int : 344 ms QRS Dur : 162 ms QT Int : 482 ms P-R-T Axes : 069 -63 071 degrees QTc Int : 482 ms Atrial-paced rhythm with prolonged AV conduction Left axis deviation Right bundle branch block Left ventricular hypertrophy with repolarization abnormality Inferior infarct (cited on or before 19-FEB-2022) Cannot rule out Anterior infarct (cited on or before 19-FEB-2022) Abnormal ECG When compared with ECG of 19-FEB-2022 20:51, (unconfirmed) Electronic atrial pacemaker has replaced Sinus rhythm Confirmed by Geoffrey Chavez ([id number] on 02/22/2022 5:42:32 AM Referred By: REFERRED SELF Confirmed By:Geoffrey Chavez
== END 2022-02-20 16:21 | disposition home or self-care (01) ==
LOC: 2S 20:20 → ED 20:20 → 2S 02-20 04:00